=== PATIENT | male | born 1980 | race Caucasian/White ===

== ENCOUNTER → 2024-01-08 | Emergency (ER) | payer MEDICAID ==
[~2024-01-08] VITALS: Ht 167.6 cm; Wt 63.5 kg
[~2024-01-08] MED LIST: ANT30 PO; OMEP20CA15 PO
[2024-01-08 15:40] VITALS: BP_SYST 134; PULSE 99; RESP 18; TEMP 96.5; O2SAT 100
[2024-01-08] MEDS: FAMOTIDINE 20 MG TABLET PO ONE (17:54)
[2024-01-08] MEDS: MAG-AL HYDROX/SIMETH 30 ML UDC PO ONE (17:54)
== END | disposition home or self-care (01) ==
LOC: SED 15:35
DX: K21.9 Gastro-esophageal reflux disease without esophagitis (principal)
CPT/HCPCS: 99283

== ENCOUNTER 2024-03-19 11:30 | Emergency (ER) | payer MEDICAID ==
[~2024-03-19] VITALS: Ht 162.6 cm; Wt 72.6 kg
[~2024-03-19 11:30] MED LIST changes: +BENZ1TAB7 PO
[2024-03-19 11:43] VITALS: BP_SYST 118; PULSE 85; RESP 22; TEMP 98.3; O2SAT 98
[2024-03-19 12:09] LABS: BASOPHILS # (AUTO) 0.1 K/uL (0.0-0.2); BASOPHILS % (AUTO) 0.7 % (0.0-2.0); EOSINOPHILS # (AUTO) 0.1 K/uL (0.0-0.4); HEMATOCRIT 41.7 % (36-54); HEMOGLOBIN 14.5 g/dL (14.0-18.0); LYMPHOCYTES # (AUTO) 3.2 K/uL (1.0-5.5); LYMPHOCYTES % (AUTO) 36.3 % (20.5-51.5); MEAN CORPUSCULAR HEMOGLOBIN 35 pg (27-31); MEAN CORPUSCULAR HGB CONC 35 % (32-36); MEAN CORPUSCULAR VOLUME 99 fL (79.0-98.0); MONOCYTES # (AUTO) 0.6 K/uL (0.0-1.0); MONOCYTES % (AUTO) 6.8 % (1.7-9.3); NEUTROPHILS # (AUTO) 4.8 K/uL (1.8-7.7); NEUTROPHILS % (AUTO) 55.2 % (40.0-70.0); PLATELET COUNT (AUTO) 212 K/uL (130-430); RED BLOOD CELL COUNT(AUTO) 4.21 MIL/uL (4.2-6.2); WHITE BLOOD COUNT (AUTO) 8.7 K/uL (4.8-10.8)
[2024-03-19 12:34] LABS: AMYLASE 63 U/L (0-100); LIPASE 28 U/L (16-77)
[2024-03-19 12:44] LABS: PROTHROMBIN TIME 10.2 SECS (9.5-12.5)
[2024-03-19 12:45] LABS: BILIRUBIN,URINE NEGATIVE (NEGATIVE); BLOOD, URINE NEGATIVE (NEGATIVE); CLARITY/URINE CLEAR (CLEAR); COLOR,URINE YELLOW (YELLOW); GLUCOSE,URINE NEGATIVE (NEGATIVE); KETONES,URINE NEGATIVE (NEGATIVE); LEUKOCYTE ESTERASE ,URINE NEGATIVE (NEGATIVE); NITRITE, URINE NEGATIVE (NEGATIVE); PROTEIN URINE NEGATIVE (NEGATIVE); UROBILINOGEN,URINE 0.2 (0.2-1.0)
[2024-03-19] MEDS ORDERED: OXYB5TAB21 PO (13:56)
[2024-03-19 13:58] VITALS: BP_SYST 118; PULSE 85; RESP 22; TEMP 98.3; O2SAT 98
[2024-03-19 14:26] LABS: ALBUMIN 4.1 g/dL (3.4-4.8); BILIRUBIN,DIRECT 0.1 mg/dL (0.0-0.3); CALCIUM 8.7 mg/dL (8.4-11.0); CREATININE 0.76 mg/dL (0.55-1.30); TOTAL BILIRUBIN 0.4 mg/dL (0.0-1.0); TOTAL PROTEIN, SERUM 7.4 g/dL (6.4-8.3)
== END 2024-03-19 13:59 | disposition home or self-care (01) ==
LOC: SED 11:30
DX: N39.498 Other specified urinary incontinence (principal); K21.9 Gastro-esophageal reflux disease without esophagitis; F20.9 Schizophrenia, unspecified; Z79.899 Other long term (current) drug therapy
CPT/HCPCS: 36415; 80048; 80076; 81001; 81003; 82150; 83605; 83690; 85025; 85610; 85730; 99283